=== PATIENT | male | born 1990 | race African-American/Black ===

== ENCOUNTER → 2021-10-14 | Outpatient (CLI) | payer OTHER ==
--- NOTE | 2021-10-14 17:03 | CONS ---
CONSULTATION DATE OF SERVICE: 10/14/2021 This 31-year-old gentleman has been evaluated in [facility] for possible obstructive sleep apnea-hypopnea syndrome. HISTORY OF PRESENT ILLNESS/SLEEP-WAKE EVALUATION: Patient's usual sleep schedule is from 9:30 p.m. until 7 a.m. No problems with falling asleep, although he has a TV set in the bedroom. He usually sleeps on the side position. He does snore and he wakes up at night with nocturia. No history of hypnagogic hallucinations, sleep paralysis or cataplexy. During the day on Sundays, he takes a nap between 2 and 3 p.m. [place] Sleepiness Scale is 4. PAST MEDICAL HISTORY: Positive for recent diagnosis of hypertension. PAST SURGICAL HISTORY: None. MEDICATIONS: None. SOCIAL HISTORY: Negative for smoking or using alcohol. FAMILY HISTORY: Basically negative. REVIEW OF SYSTEMS: Awakenings from sleep, hypertension. No fevers. No double vision. No recent chest pain. No shortness of breath. No abdominal pain. No bleeding episodes. No blood in the urine. No seizure episodes. PHYSICAL EXAMINATION: GENERAL: Pleasant -[place]onduran gentleman without distress. VITAL SIGNS: BP 175/96 in left arm, 148/98 when it was retaken. Height 5 feet 9-1/2 inches, weight 190.4, body mass index 27.6. Neck 15-1/4 inches in circumference. Temperature 97.8, oxygen saturation at room air 98%. HEENT: PERRLA, EOMI, evaluation of oropharynx showed tongue protrudes midline. Low position of soft palate; Mallampati III. NECK: Supple, no JVD. Thyroid is not palpable. LUNGS: Clear to percussion and to auscultation. Good air exchange. No wheezing or rhonchi. HEART: S1, S2 regular. No murmurs, gallops, or rubs. ABDOMEN: Soft and nontender. Bowel sounds are present. No organomegaly appreciated. EXTREMITIES: No clubbing or cyanosis. CHIEF INVESTIGATOR: Awake, alert, and oriented X3. Cranial nerves 2 to 7 intact. There is no fasciculation or atrophy. noted. No focal deficits observed. IMPRESSION: 1. Snoring, awakenings from sleep with nocturia, low position of soft palate, Mallampati III; possible obstructive sleep apnea-hypopnea syndrome. 2. Hypertension. 3. Mild overweight. PLAN: 1. Polysomnography for evaluation of patient's breathing during sleep. 2. CPAP/BiPAP titration if sleep study confirms obstructive sleep apnea-hypopnea syndrome. 3. Preferable position during sleep on the side. 4. No driving if patient feels any sleepiness. 5. I will see patient for follow up visit to explain results of testing and following plan. Thank you very much for referring this patient for consultation. Sincerely, Monster Reyes MD, PhD, FAASM Diplomat of [place] [employer] Sleep Medicine Board of [place] [employer] Medicine Early Childhood Educator Aide of [facility] [place] MMODL / CAITLINN: [id number] /
== END ==
LOC: SLEEP 15:44
PROVIDERS: ATTEND Internal Medicine
DX: R06.83 Snoring (principal); R35.1 Nocturia; I10 Essential (primary) hypertension; E66.3 Overweight; Z68.27 Body mass index [BMI] 27.0-27.9, adult
CPT/HCPCS: 99202

== ENCOUNTER → 2022-09-21 | Outpatient (CLI) | payer OTHER ==
--- NOTE | 2022-09-21 12:33 | P.PN ---
Subjective DATE: 09/21 FOLLOW UP VISIT. Patient with obstructive sleep apnea hypopnea syndrome return to sleep center for follow-up visit. Recently patient had sleep study which documented obstructive sleep apnea hypopnea syndrome. Patient was initiated on PAP therapy and today is first visit after treatment was started. I explained results of sleep studies to the patient in details. Patient was able to use PAP equipment but not every night. The patient does not have significant problems with the mask, PAP pressure and humidification. [place] sleepiness scale is 17, patient continued to feel sleepiness while using CPAP.. I checked information from PAP unit. PAP unit pressure 5-15, average 10.7 cm H2O. Usage is 60% and 57 % for more then 4 hours, average 5 hours 17 minutes per night. Leak is 3.4 l/m, which is in acceptable range. Apnea Hypopnea Index is 1.8, which is normal. MEDICATIONS: None[] During physical exam: GENERAL: A pleasant patient without any distress. VITAL SIGNS: BP 157/91, HR 104, RR 18 , weight 196.6, temperature 97.1, oxygen saturation at room air 95% . HEENT: PERRLA, EOMI.low position of soft palate, Mallapati 3 . NECK: Supple. No JVD. LUNGS: Clear to percussion and to auscultation. Good air exchange. No wheezing or rhonchi. HEART: S1, S2 regular. ABDOMEN: Soft and nontender.[] EXTREMITIES: No clubbing or cyanosis. POSTIE: Awake, alert, and oriented x3. No focal deficit. Impressions: 1. Obstructive sleep apnea-hypopnea syndrome. Patient demonstrated slightly short compliance with CPAP treatment. He continued to have symptoms of sleepiness during the day. 2. Hypertension. 3. Sleepiness. Plan: 1. Continue using PAP equipment every night for the whole night. Patient should have additional 90 day trial. Patient promised to follow recommendations 2. To change air filter at least 1-2 times per month. 3. PAP unit should stay lower then position of the head. 4. Advised patient to remove all remaining water from humidifier canister daily and make it dry after each usage. Refill canister with fresh distilled water before each usage. 5. Sleep hygiene with regular time in bed for at least 8 hours. 6. Precautions related to driving. No driving if feel any sleepiness. 7. I will maintain prescription for PAP supplies including mask, tube, filters. 8. Follow up visit in 2 months or earlier if patient has any problems. 9. Watching weight. Thank you very much for allowing me to participate in the management of your patient. Monster Reyes MD, PhD, FAASM. Diplomat of [place] Board of Sleep Medicine, Sleep Medicine Board by [place] Board of Internal Medicine Automatic Print Developer of [facility] [place]
== END ==
LOC: SLEEP 11:14
PROVIDERS: ATTEND Internal Medicine
DX: G47.33 Obstructive sleep apnea (adult) (pediatric) (principal); I10 Essential (primary) hypertension; Z99.89 Dependence on other enabling machines and devices
CPT/HCPCS: 99212

== ENCOUNTER → 2022-12-14 | Outpatient (CLI) | payer OTHER ==
--- NOTE | 2022-12-14 12:01 | P.PN ---
Subjective DATE: 12/14/2022 FOLLOW UP VISIT. Patient with obstructive sleep apnea hypopnea syndrome return to sleep center for follow-up visit. Information from previous visit have been reviewed. Patient is using PAP equipment every night for the whole night, getting PAP supplies in time. The patient does not have significant problems with the mask, PAP unit and humidification. [address] sleepiness scale is increased to 15. I checked information from PAP unit. PAP unit pressure 5-15, average 9.1 cm H2O. Usage is 100% and 88 % for more then 4 hours, average 5.75 hours per night. Leak is 10.9 l/m, which is in acceptable range. Apnea Hypopnea Index is 1.8, which is normal. MEDICATIONS: None During physical exam: GENERAL: A pleasant patient without any distress. VITAL SIGNS: BP 145/ 106, HR 102, RR 16 , weight 193.2, temperature 97.9, oxygen saturation at room air 98 % . HEENT: PERRLA, EOMI.low position of soft palate, Mallapati 3 . NECK: Supple. No JVD. LUNGS: Clear to percussion and to auscultation. Good air exchange. No wheezing or rhonchi. HEART: S1, S2 regular. ABDOMEN: Soft and nontender.[] EXTREMITIES: No clubbing or cyanosis. RAIMANN MACHINE OPERATOR: Awake, alert, and oriented x3. No focal deficit. Impressions: 1. Obstructive sleep apnea-hypopnea syndrome. Patient demonstrated great compliance with treatment, benefiting from treatment. 2. Increased blood pressure in the office today. 3. Sleepiness by [address] Sleepiness Scale. Plan: 1. Continue using PAP equipment every night for the whole night. 2. To change air filter at least 1-2 times per month. 3. PAP unit should stay lower then position of the head. 4. Advised patient to remove all remaining water from humidifier canister daily and make it dry after each usage. Refill canister with fresh distilled water before each usage. 5. Sleep hygiene with regular time in bed for at least 8 hours. 6. Precautions related to driving. No driving if feel any sleepiness. 7. I will maintain prescription for PAP supplies including mask, tube, filters. 8. Follow up visit in 6 months or earlier if patient has any problems. 9. We may consider multiple sleep latency test if patient will continue to have symptoms of excessive daytime sleepiness. 10. Monitoring blood pressure. Low sodium diet. Thank you very much for allowing me to participate in the management of your patient. Monster Reyes MD, PhD, FAASM. Diplomat of [place] [employer], Sleep Medicine Board by [place] [employer] Clam Shucking Machine Tender of [facility] [place]
== END ==
LOC: SLEEP 11:12
PROVIDERS: ATTEND Internal Medicine
DX: G47.33 Obstructive sleep apnea (adult) (pediatric) (principal); R03.0 Elevated blood-pressure reading, without diagnosis of hypertension; Z99.89 Dependence on other enabling machines and devices
CPT/HCPCS: 99212

== ENCOUNTER → 2023-08-03 | Outpatient (CLI) | payer OTHER ==
--- NOTE | 2023-08-03 13:53 | P.PN ---
Subjective DATE: 08/03/2023 FOLLOW UP VISIT. Patient with obstructive sleep apnea hypopnea syndrome return to sleep center for follow-up visit. Information from previous visit have been reviewed. Patient is using PAP equipment every night for the whole night, getting PAP supplies in time. The patient does not have significant problems with the mask, PAP unit and humidification. [place] sleepiness scale is slightly increased to 11. I checked information from PAP unit and explained to the patient in details. PAP unit pressure 5-15, average 10.0 cm H2O. Usage is 77% and 44 % for more then 4 hours, average 4.25 hours per night. Leak is 18.1 l/m, which is in acceptable range. Apnea Hypopnea Index is 2.7, which is normal. MEDICATIONS: None During physical exam: GENERAL: A pleasant patient without any distress. VITAL SIGNS: BP 159/100, HR 99, RR 18 , weight 195.6, temperature 98.9, oxygen saturation at room air 99 % . HEENT: PERRLA, EOMI.low position of soft palate, Mallapati 3 . NECK: Supple. No JVD. LUNGS: Clear to percussion and to auscultation. Good air exchange. No wheezing or rhonchi. HEART: S1, S2 regular. ABDOMEN: Soft and nontender.[] EXTREMITIES: No clubbing or cyanosis. CONTENT PRODUCER: Awake, alert, and oriented x3. No focal deficit. Impressions: 1. Obstructive sleep apnea-hypopnea syndrome. Patient demonstrated borderline compliance with treatment, benefiting from treatment. 2. Hypertension in the office. 3. Slight sleepiness by for sleepiness scale. 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 Plan: 1. Continue using PAP equipment every night for the whole night. 2. To change air filter at least 1-2 times per month. 3. PAP unit should stay lower then position of the head. 4. Advised patient to remove all remaining water from humidifier canister daily and make it dry after each usage. Refill canister with fresh distilled water before each usage. 5. Sleep hygiene with regular time in bed for at least 8 hours. 6. Precautions related to driving. No driving if feel any sleepiness. 7. I will maintain prescription for PAP supplies including mask, tube, filters. 8. Follow up visit in 6 months or earlier if patient has any problems. 9. Watching weight. 10. monitoring blood pressure. 11. Low sodium diet. Thank you very much for allowing me to participate in the management of your patient. Monster Reyes MD, PhD, FAASM. Diplomat of [place] [employer] Sleep Medicine, Sleep Medicine Board by [place] Board of Internal Medicine Wheel Press Operator of [facility] [place]
== END ==
LOC: 3 N SLEEP 13:14
PROVIDERS: ATTEND Internal Medicine
DX: G47.33 Obstructive sleep apnea (adult) (pediatric) (principal); I49.9 Cardiac arrhythmia, unspecified; I10 Essential (primary) hypertension; R40.0 Somnolence; Z99.89 Dependence on other enabling machines and devices
CPT/HCPCS: 99212

== ENCOUNTER → 2024-03-07 | Outpatient (CLI) | payer BC ==
[2024-03-07 13:50] VITALS: BP 139/86; PULSE 107; RESP 14; TEMP 97.6
--- NOTE | 2024-03-07 14:24 | P.PROGSL ---
Subjective DATE: 03/07/2024 FOLLOW UP VISIT. Patient with obstructive sleep apnea hypopnea syndrome return to sleep center for follow-up visit. Information from previous visit have been reviewed. Patient is using PAP equipment every night for the whole night, getting PAP supplies in time. The patient does not have significant problems with the mask, PAP unit and humidification. [place] sleepiness scale is increased to 13. I checked information from PAP unit. PAP unit pressure 5-15, average 10.2 cm H2O. Usage is 53% for more then 4 hours, average 4.25 hours per night. Leak is increased to 31.1 l/m. Apnea Hypopnea Index is 2.0, which is normal. MEDICATIONS: None at the present time During physical exam: GENERAL: A pleasant patient without any distress. VITAL SIGNS: Please see below, weight 198.6 pounds, BMI 29.2. HEENT: PERRLA, EOMI.low position of soft palate, Mallapati 3 . NECK: Supple. No JVD. LUNGS: Clear to percussion and to auscultation. Good air exchange. No wheezing or rhonchi. HEART: S1, S2 regular. ABDOMEN: Soft and nontender.[] EXTREMITIES: No clubbing or cyanosis. PYTHON ARCHITECT: Awake, alert, and oriented x3. No focal deficit. Impressions: 1. Obstructive sleep apnea-hypopnea syndrome. Patient demonstrated great compliance with treatment, benefiting from treatment. 2. Slight increasing blood pressure in the office. 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 4. Mild sleepiness by [place] Sleepiness Scale. Plan: 1. Continue using PAP equipment every night for the whole night. 2. To change air filter at least 1-2 times per month. 3. PAP unit should stay lower then position of the head. 4. Advised patient to remove all remaining water from humidifier canister daily and make it dry after each usage. Refill canister with fresh distilled water before each usage. 5. Sleep hygiene with regular time in bed for at least 8 hours. 6. Precautions related to driving. No driving if feel any sleepiness. 7. I will maintain prescription for PAP supplies including mask, tube, filters. 8. Follow up visit in 6 months or earlier if patient has any problems. 9. Monitoring blood pressure, low-sodium diet. 10. Watching weight. Thank you very much for allowing me to participate in the management of your patient. Monster Reyes MD, PhD, FAASM. Diplomat of [place] Board [employer] Sleep Medicine, Sleep Medicine Board by [place] Board of [employer] Medicine Java Application Engineer of [facility] [place] cc: Remington Nesbitt DO Objective - Vital Signs Vital Signs: Vital Signs Temp 97.6 F 03/07/24 13:49 Pulse 107 H 03/07/24 13:49 Resp 14 03/07/24 13:49 BP 139/86 03/07/24 13:49 Pulse Ox 99 03/07/24 13:49 FiO2 Intake & Output 03/06/24 03/07/24 03/07/24 18:59 06:59 18:59 Weight 89.981 kg
== END ==
LOC: 3 N SLEEP 13:11
PROVIDERS: ATTEND Internal Medicine
DX: G47.33 Obstructive sleep apnea (adult) (pediatric) (principal); R03.0 Elevated blood-pressure reading, without diagnosis of hypertension; Z99.89 Dependence on other enabling machines and devices
CPT/HCPCS: 99212